=== PATIENT | female | born 1990 | race Caucasian/White ===

== ENCOUNTER 2019-03-10 19:26 | Observation (INO) | payer MEDICAID ==
[~2019-03-10] VITALS: Ht 152.4 cm; Wt 66.2 kg
[2019-03-10] MEDS ORDERED: FOLI-43 MT (20:24)
[2019-03-10] MEDS ORDERED: FERR-71 MT (20:24)
[2019-03-10] MEDS ORDERED: PREN1TAB78 MT (20:24)
== END 2019-03-10 22:50 | disposition home or self-care (01) ==
LOC: 8 EST LDRP 19:26
PROVIDERS: ADMIT Obstetrics & Gynecology; ATTEND Obstetrics & Gynecology
DX: O36.8330 Maternal care for abnormalities of the fetal heart rate or rhythm, third trimester, not applicable or unspecified (principal); Z3A.31 31 weeks gestation of pregnancy
CPT/HCPCS: 59025; 76815; 76818; 99281; G0378

== ENCOUNTER 2019-04-10 14:02 | Observation (INO) | payer MEDICAID, MEDICARE ==
[~2019-04-10] VITALS: Ht 160 cm; Wt 68.0 kg
[~2019-04-10 14:02] MED LIST: FERR-71 MT; FOLI-43 MT; PREN1TAB78 MT
[2019-04-10] MEDS ORDERED: LACTATED RINGERS 1,000 ML IV SCH (14:54)
[2019-04-10] MEDS ORDERED: CARBOPROST TROMETHAMINE 250 MCG/ML AMPUL IM PRN (15:00)
[2019-04-10] MEDS ORDERED: METHYLERGONOVINE MALEATE 0.2 MG/ML IM PRN (15:00)
[2019-04-10] MEDS ORDERED: LIDOCAINE HCL 1% 20ML VIAL (Pyxis) INJ INFIL SCH (15:00)
[2019-04-10] MEDS ORDERED: BUTORPHANOL TARTRATE 2 MG/ML VIAL IV PRN (15:00)
[2019-04-10] MEDS ORDERED: DEXT 5%/LR + PITOCIN 20UNITS/L 1,000 ML IV SCH (16:00)
== END 2019-04-10 16:15 | disposition home or self-care (01) ==
LOC: 8 EST LDRP 14:02
PROVIDERS: ADMIT Obstetrics & Gynecology; ATTEND Obstetrics & Gynecology
DX: O36.8130 Decreased fetal movements, third trimester, not applicable or unspecified (principal); Z3A.36 36 weeks gestation of pregnancy
CPT/HCPCS: 76815; 99281; G0378

== ENCOUNTER 2019-04-13 21:48 | Inpatient (IN) | payer MEDICARE ==
[~2019-04-13] VITALS: Ht 154.9 cm; Wt 68.0 kg
[2019-04-13] MEDS: LACTATED RINGERS 1,000 ML IV SCH (22:43)
[2019-04-13] MEDS ORDERED: DEXT 5%/LR + PITOCIN 20UNITS/L 1,000 ML IV SCH (22:43)
[2019-04-13] MEDS ORDERED: LIDOCAINE HCL 1% 20ML VIAL (Pyxis) INJ INFIL SCH (22:45)
[2019-04-13] MEDS ORDERED: MISOPROSTOL 100MCG TABLET VG SCH (22:45)
[2019-04-13] MEDS ORDERED: DINOPROSTONE 10MG VAGINAL INSERT VG NR (22:45)
[2019-04-13] MEDS ORDERED: METHYLERGONOVINE MALEATE 0.2 MG/ML IM PRN (22:45)
[2019-04-14] LABS: BASOPHILS % 0.4 % (0.0-2.0); HEMATOCRIT. 32.8 % (36.0-48.0); HEMOGLOBIN. 11.3 g/dL (12.0-16.0); LYMPHOCYTES % 14.2 % (20.0-50.0); MEAN CORPUSCULAR HEMOGLOBIN 30.8 pg (28.0-32.0); MEAN CORPUSCULAR VOLUME 89.2 fL (81.0-99.0); NEUTROPHILS % 77.4 % (40.0-76.0); PLATELET 168 x1000/uL (130-400); RED BLOOD CELL COUNT 3.68 mill/uL (4.2-5.4); RED CELL DISTRIBUTION WIDTH 13.4 % (11.6-14.6)
[2019-04-14 00:04] LABS: CHLORIDE 108 mEq/L (98-107)
[2019-04-14 00:13] LABS: CLARITY URINE CLEAR (CLEAR); COLOR URINE YELLOW (YELLOW); KETONES URINE NEGATIVE (NEGATIVE); LEUKOCYTE ESTERASE URINE 2+ (NEGATIVE); NITRITE URINE NEGATIVE (NEGATIVE); OCCULT BLOOD URINE NEGATIVE (NEGATIVE); PROTEIN URINE NEGATIVE (NEGATIVE); SPECIFIC GRAVITY URINE 1.009 (1.005-1.030); UROBILINOGEN URINE 0.2 E.U./dL (0.2-1.0)
[2019-04-14 00:23] LABS: *AMPHETAMINES SCREEN URINE NEGATIVE (NEGATIVE)
[2019-04-14 00:24] LABS: *BARBITURATES SCREEN URINE NEGATIVE (NEGATIVE); *BENZODIAZEPINES SCREEN URINE NEGATIVE (NEGATIVE); *COCAINE SCREEN URINE NEGATIVE (NEGATIVE); METHADONE URINE SCREEN NEGATIVE (NEGATIVE); OPIATES URINE SCREEN NEGATIVE (NEGATIVE); PHENCYCLIDINE URINE SCREEN NEGATIVE (NEGATIVE)
[2019-04-14 00:25] LABS: CANNABINOID URINE SCREEN NEGATIVE (NEGATIVE)
[2019-04-14 00:27] LABS: INR 0.9; PARTIAL THROMBOPLASTIN TIME 30.2 sec (23.4-31.0); PROTHROMBIN TIME 9.6 sec (9.6-11.0)
[2019-04-14 00:35] LABS: HEPATITIS B SURFACE ANTIGEN NEGATIVE
[2019-04-14] MEDS: BUTORPHANOL TARTRATE 2 MG/ML VIAL IV PRN ×3 (02:47→22:42)
[2019-04-14] MEDS: LACTATED RINGERS 1,000 ML IV SCH ×2 (07:36→22:45)
[2019-04-14] MEDS ORDERED: CARBOPROST TROMETHAMINE 250 MCG/ML AMPUL IM PRN (23:30)
[2019-04-14] MEDS ORDERED: BUTORPHANOL TARTRATE 2 MG/ML VIAL IV PRN (23:30)
[2019-04-14] MEDS ORDERED: NALOXONE HCL 0.4 MG/ML 1ML VIAL IM PRN (23:30)
[2019-04-14] MEDS ORDERED: LIDOCAINE HCL 1% 20ML VIAL (Pyxis) INJ INFIL SCH (23:30)
[2019-04-14] MEDS ORDERED: METHYLERGONOVINE MALEATE 0.2 MG/ML IM PRN (23:30)
[2019-04-14] MEDS ORDERED: MISOPROSTOL 100MCG TABLET VG PRN (23:30)
[2019-04-14] MEDS ORDERED: DEXT 5%/LR + PITOCIN 20UNITS/L 1,000 ML IV PRN (23:30)
[2019-04-15] MEDS: LACTATED RINGERS 1,000 ML IV SCH ×2 (04:39→09:05)
[2019-04-15] MEDS ORDERED: ROPIVACAINE HCL/PF EPIDURAL 200 ML EPI SCH (05:15)
[2019-04-15] MEDS ORDERED: DEXT 5%/LR + PITOCIN 20UNITS/L 1,000 ML IV SCH (13:29)
[2019-04-15] MEDS ORDERED: HEMORRHOIDAL SUPP PR PRN (13:30)
[2019-04-15] MEDS ORDERED: ACETAMINOPHEN WITH CODEINE 300/30MG TABLET PO PRN ×2 (13:30)
[2019-04-15] MEDS ORDERED: GLYCERIN/WITCH HAZEL LEAF MEDICATED PAD TOP PRN (13:30)
[2019-04-15] MEDS ORDERED: BISACODYL 10MG SUPP PR PRN (13:30)
[2019-04-15] MEDS ORDERED: DIPHENHYDRAMINE 25MG CAPSULE PO PRN (13:30)
[2019-04-15] MEDS ORDERED: IBUPROFEN 800MG TABLET PO PRN (13:30)
[2019-04-15] MEDS ORDERED: IBUPROFEN 400MG TABLET PO PRN (13:30)
[2019-04-15] MEDS ORDERED: BENZOCAINE/LANOLIN/ALOE VERA SPRAY TOP PRN (13:30)
[2019-04-15 16:57] VITALS: BP 116/68
[2019-04-15 19:30] VITALS: BP 106/59
[2019-04-15] MEDS: SIMETHICONE 80MG TABLET CHEW PO SCH (21:33)
[2019-04-15] MEDS: DOCUSATE SODIUM 100MG CAPSULE PO SCH (21:33)
[2019-04-15] MEDS: MAGNESIUM/ALUMINUM HYDROXIDE/SIMETHICONE 30ML UDC PO SCH (21:34)
[2019-04-16] MEDS: IBUPROFEN 800MG TABLET PO PRN ×2 (03:21→13:55)
[2019-04-16 04:00] VITALS: BP 103/58
[2019-04-16 08:57] VITALS: BP 95/52
[2019-04-16] MEDS: MAGNESIUM/ALUMINUM HYDROXIDE/SIMETHICONE 30ML UDC PO SCH ×4 (09:47→22:11)
[2019-04-16] MEDS: SIMETHICONE 80MG TABLET CHEW PO SCH ×4 (09:47→22:12)
[2019-04-16] MEDS: FERROUS SULFATE 325MG TABLET PO SCH ×3 (09:47→16:59)
[2019-04-16] MEDS: PRENATAL VIT/FE FUMARATE/FA TABLET PO SCH (09:48)
[2019-04-16 10:25] LABS: BASOPHILS % 0.2 % (0.0-2.0); EOSINOPHILS % 0.2 % (0.0-5.0); HEMATOCRIT. 30.3 % (36.0-48.0); HEMOGLOBIN. 10.1 g/dL (12.0-16.0); LYMPHOCYTES % 11.6 % (20.0-50.0); MEAN CORPUSCULAR HEMOGLOBIN 30.1 pg (28.0-32.0); MEAN CORPUSCULAR VOLUME 90.3 fL (81.0-99.0); MEAN PLATELET VOLUME 8.8 fl (7.4-10.4); MONOCYTES % 5.2 % (2.0-8.0); NEUTROPHILS % 82.8 % (40.0-76.0); PLATELET 136 x1000/uL (130-400); RED BLOOD CELL COUNT 3.35 mill/uL (4.2-5.4); RED CELL DISTRIBUTION WIDTH 13.3 % (11.6-14.6)
[2019-04-16 16:00] VITALS: BP 97/42
[2019-04-16 19:30] VITALS: BP 99/56
[2019-04-16] MEDS: DOCUSATE SODIUM 100MG CAPSULE PO SCH (22:11)
[2019-04-17 05:00] VITALS: BP 95/48
[2019-04-17] MEDS: FERROUS SULFATE 325MG TABLET PO SCH (08:11)
[2019-04-17] MEDS: PRENATAL VIT/FE FUMARATE/FA TABLET PO SCH (08:11)
[2019-04-17] MEDS: MAGNESIUM/ALUMINUM HYDROXIDE/SIMETHICONE 30ML UDC PO SCH (08:11)
[2019-04-17] MEDS ORDERED: LIDOCAINE HCL 1% 20ML VIAL (Pyxis) INJ ONE (09:15)
[2019-04-17] MEDS ORDERED: SODIUM BICARBONATE 4% (2.4MEQ) 5ML VIAL IV ONE (09:16)
== END 2019-04-17 09:50 | DRG 560 ==
LOC: UNDOADMOB 21:48 → OBSVTOIN 21:48 → 8 EST LDRP 21:48
PROVIDERS: ADMIT Obstetrics & Gynecology; ATTEND Obstetrics & Gynecology
PROC: 10E0XZZ Delivery of Products of Conception, External Approach (ICD-10-PCS; principal; 2019-04-15)
PROC: 3E033VJ Introduction of Other Hormone into Peripheral Vein, Percutaneous Approach (ICD-10-PCS; 2019-04-15)
PROC: 10907ZC Drainage of Amniotic Fluid, Therapeutic from Products of Conception, Via Natural or Artificial Opening (ICD-10-PCS; 2019-04-15)
PROC: 3E0R3BZ Introduction of Anesthetic Agent into Spinal Canal, Percutaneous Approach (ICD-10-PCS; 2019-04-15)
PROC: 00HU33Z Insertion of Infusion Device into Spinal Canal, Percutaneous Approach (ICD-10-PCS; 2019-04-15)
DX: O36.4XX0 Maternal care for intrauterine death, not applicable or unspecified (principal); O60.14X0 Preterm labor third trimester with preterm delivery third trimester, not applicable or unspecified; O69.81X0 Labor and delivery complicated by cord around neck, without compression, not applicable or unspecified; Z37.1 Single stillbirth; Z3A.36 36 weeks gestation of pregnancy
CPT/HCPCS: 36415; 76805; 80305; 81003; 86592; 86703; 86762; 86850; 86900; 87340; 88307; J0595; J2210; J2590; J2795; J3490; J7120